=== PATIENT | male | born 1945 | race Caucasian/White ===

== ENCOUNTER 2018-11-06 15:00 | Observation (INO) ==
--- NOTE | 2018-11-06 15:15 | Emergency Department Note ---
Disposition Clinical Impression: Acute exacerbation of chronic obstructive airways disease, Hypertensive emergency Disposition: Home, Self-Care Condition: Good Referrals: Fahad Ng MD [Primary Care Provider] - Forms: ED Satisfaction Letter Time of Disposition: 18:33 (Nikita Cruz) SOB HPI - General Chief Complaint: ED Shortness of Breath/Dyspnea Stated Complaint: Shortness of breath, chest heaviness Time Seen by Provider: 11/06/18 15:00 Source: patient, family Mode of arrival: ambulatory Limitations: no limitations Nursing Notes Reviewed: Yes Vital Signs Reviewed: Yes - History of Present Illness 73-year-old male who is been having increasing shortness of breath for the past couple of days he's had shortness of breath ever since he shoveled snow the other day he denies any calf pain or tenderness noted denies any rashes or lesions states that he is having blurred vision or double vision no diarrhea no melena no hematochezia denies numbness tingling weakness recently gain or weight loss I's any radiation to neck or jaw patient states he has chest heaviness but not chest pain denies nausea vomiting or diaphoresis patient denies anything makes better anything makes it worse all systems have been reviewed and are otherwise negative patient does admit that he is noncompliant with his medications he is not tried his inhalers and he is only tried his pressure pill and he infrequently takes his cholesterol medicatio Pt Subjective Complaint: shortness of breath, chest pain Onset (ago): day(s) Context: other (After shoveling snow) Severity: moderate Consistency/Duration: constant Improves with: nothing Worsens with: nothing Known history of: COPD (emphysema) Associated symptoms: Reports: wheezing. Denies: chest pain, pain with inspiration, fever, cough, sputum production, orthopnea, lower extremity pain, polyuria, polydipsia, parasthesias, palpitations, hemoptysis, diaphoresis, nausea/vomiting, syncope, abdominal pain, rash, sense of impending doom Treatment prior to arrival: other (Has medications has opted not to use them) Cough present: No Sputum production: No - Related Data Home Medications Medication Instructions Recorded Confirmed Atenolol [Tenormin] 50 mg PO DAILY 11/06/18 11/06/18 Pravastatin Sodium [Pravachol] 20 mg PO DAILY 11/06/18 11/06/18 Allergies Allergy/AdvReac Type Severity Reaction Status Date / Time No Known Allergies Allergy Verified 11/06/18 15:00 All systems ED: reviewed and negative except as stated. Review of Systems: As Per HPI Constitutional: Denies: fever, chills, weakness Eyes: Denies: eye pain, eye discharge ENT ED: Reports: congestion. Denies: ear pain, throat pain Cardiovascular: Reports: chest pain, dyspnea on exertion. Denies: palpitations, syncope Respiratory: Reports: cough, dyspnea, wheezes Gastrointestinal: Denies: abdominal pain, nausea, vomiting Genitourinary: Denies: urgency, dysuria Musculoskeletal: Denies: back pain Integumentary: Denies: rash, abrasion Neurological: Denies: headache Psychiatric: Denies: anxiety Endocrine: Denies: fatigue Hematological/Lymphatic: Denies: easy bleeding Allergic/Immunologic: Denies: facial swelling Past Medical History - Past Medical History Attestation: Yes The following information was validated with the patient. Source: patient, old records reviewed, nursing notes reviewed Medical history: Reports: asthma, hyperlipidemia, hypertension Psychiatric history: Reports: no psych history - Social History Smoking Status: Former smoker Smokeless Tobacco Status: No Alcohol use: Reports: none Drug use: Reports: none Physical Exam - General Limitations: no limitations General appearance: alert, in no apparent distress, anxious - Head Head exam: atraumatic, normocephalic, normal inspection - Eye Eye exam: Present: normal appearance, PERRL, EOMI - ENT ENT exam: normal exam, normal oropharynx, mucous membranes moist, TM's normal bilaterally, normal external ear exam - Neck Neck exam: Present: normal inspection, full ROM, trachea midline - Chest Chest inspection: Present: normal inspection, symmetric chest wall rise - Respiratory Respiratory exam: Present: normal lung sounds bilaterally, prolonged expiratory phase - Cardiovascular Cardiovascular exam: Present: regular rate, normal rhythm, normal heart sounds - Abdominal Exam Abdominal exam: Present: soft, Non-Tender, normal bowel sounds. Absent: mass, pulsatile mass - Extremities Exam Extremities exam: Present: normal inspection, full ROM, normal capillary refill. Absent: tenderness, pedal edema, joint swelling, calf tenderness - Expanded Lower Extremity Exam Neurovascular/Tendon exam: Present: normal capillary refill, normal fine/light touch Gait: observed and normal - Back Exam Back exam: Present: normal inspection, full ROM. Absent: muscle spasm - Neurological Exam Neurological exam: Present: alert, oriented X3, CN II-XII intact, normal gait - Psychiatric Psychiatric exam: Present: normal affect, normal mood - Skin Skin exam: Present: warm, dry, intact, normal color Course Course Narrative: Seen and examined laboratory data chest x-ray and EKG were ordered patient resting comfortably at this time does not appear to be a distress vital signs pulse 74 O2 sats 98% respiratory rate is 17 blood pressure slightly elevated 204/104 will be receiving clonidine 0.1 mg 2 to try to decrease his pressure - Reevaluation(s) Reevaluation #1: Patient is continued rest comfortably he was given labetalol 1 dose labetalol with 0.2 mg clonidine his heart rate is now 59 O2 sats 96% blood pressures 160/80 is resting comfortably I did speak with Dr. Shelton was admitted for obs ervation and we will CT his abdomen as upon admission patient be transferred to [facility] Vital Signs O2 Sat by Pulse Oximetry 89 11/06/18 15:00 Temperature 98.7 F 11/06/18 15:02 Pulse Rate 79 11/06/18 16:28 Respiratory Rate 18 11/06/18 16:28 Blood Pressure 194/96 11/06/18 16:28 O2 Sat by Pulse Oximetry 97 11/06/18 16:28 Oxygen Delivery Oxygen Delivery Nasal Cannula Shortness of Breath/Dyspnea - [facility] Narrative Medical decision making narrative: Hypertensive emergency urgency - Differential Diagnosis Likely: acute exacerbation of chronic obstructive airways disease - Medical Records Medical records reviewed: Yes I reviewed the patient's medical records. - Lab Data Lab results reviewed: Yes I reviewed the patient's lab results. Result diagrams: 11/06/18 15:59 11/06/18 15:59 Lab Results 11/06/18 11/06/18 11/06/18 Range/Units 15:45 15:59 15:59 WBC 6.5 (4.3-11.1) K/mcL RBC 4.79 (4.19-5.50) M/mcL Hgb 14.3 (12.9-16.9) g/dL Hct 43.3 (37.5-50.1) % MCV 90.4 (83.0-100.0) fL MCH 29.9 (28.0-33.3) pg MCHC 33.0 (31.6-35.5) g/dL RDW 12.4 (11.5-14.5) % Plt Count 122 L (140-400) K/mcL MPV 10.4 (9.4-12.4) fL Immature Gran % 0.2 (0-4) % Seg Neutrophils % 73.1 % Lymphocytes % 15.3 % Monocytes % 7.7 % Eosinophils % 3.1 % Basophils % 0.6 % Neutrophils # 4.8 (1.6-8.9) K/mcL Lymphocytes # 1.0 (0.6-4.6) K/mcL Monocytes # 0.5 (0.0-1.3) K/mcL Eosinophils # 0.2 (0.0-0.6) K/mcL Basophils # 0.0 (0.0-0.2) K/mcL PT 13.0 H (9.4-12.1) Seconds INR 1.2 APTT 30.8 (26.0-36.0) Seconds D-Dimer 5724 H (0-500) ng/mLFEU Sodium (136-145) mEq/L Potassium (3.5-5.1) mEq/L Chloride (98-107) mEq/L Carbon Dioxide (23-29) mEq/L BUN (8-23) mg/dL Creatinine (0.70-1.30) mg/dL Est GFR ( Amer) (> 60) Est GFR (Non-Af Amer) (> 60) BUN/Creatinine Ratio (6-26) Glucose (70-105) mg/dL Calculated Osmolality (280-300) Calcium (8.6-10.3) mg/dL Total Bilirubin (0.3-1.0) mg/dL AST (13-39) Units/L ALT (7-52) Units/L Alkaline Phosphatase (34-104) Units/L Troponin I (< 0.04) ng/mL B-Natriuretic Peptide (Less than 100) pg/mL Serum Total Protein (6.4-8.9) g/dL Albumin (3.5-5.7) g/dL Globulin (2.4-3.5) g/dL Albumin/Globulin Ratio (1.1-2.2) TSH (0.340-5.600) mcIU/mL Urine Color Yellow (Yellow) Urine Clarity Clear (Clear) Urine pH 7.5 (5.0-8.0) pH Units Ur Specific [place] 1.020 (1.010-1.025) Urine Protein 100 H (Neg-Trace) mg/dL Urine Glucose (UA) Normal (Normal) mg/dL Urine Ketones Negative (Negative) mg/dL Urine Blood Trace-lysed H (Negative) Urine Nitrite Negative (Negative) Urine Bilirubin Negative (Negative) Urine Urobilinogen 2.0 H (Normal) mg/dL Ur Leukocyte Esterase Negative (Negative) Urine Microscopic RBC 0-3 (0-3) per hpf Urine Microscopic WBC 0-3 (0-3) per hpf Ur Squamous Epith Cells Few (None-Few) per lpf Amorphous Sediment Moderate H (Few) Urine Bacteria Moderate H (None-Few) per hpf Urine Yeast Few H (None Seen) per hpf Ur Culture Indicated? NO (NO) 11/06/18 11/06/18 Range/Units 15:59 15:59 WBC (4.3-11.1) K/mcL RBC (4.19-5.50) M/mcL Hgb (12.9-16.9) g/dL Hct (37.5-50.1) % MCV (83.0-100.0) fL MCH (28.0-33.3) pg MCHC (31.6-35.5) g/dL RDW (11.5-14.5) % Plt Count (140-400) K/mcL MPV (9.4-12.4) fL Immature Gran % (0-4) % Seg Neutrophils % % Lymphocytes % % Monocytes % % Eosinophils % % Basophils % % Neutrophils # (1.6-8.9) K/mcL Lymphocytes # (0.6-4.6) K/mcL Monocytes # (0.0-1.3) K/mcL Eosinophils # (0.0-0.6) K/mcL Basophils # (0.0-0.2) K/mcL PT (9.4-12.1) Seconds INR APTT (26.0-36.0) Seconds D-Dimer (0-500) ng/mLFEU Sodium 139 (136-145) mEq/L Potassium 4.2 (3.5-5.1) mEq/L Chloride 102 (98-107) mEq/L Carbon Dioxide 31 H (23-29) mEq/L BUN 23 (8-23) mg/dL Creatinine 1.07 (0.70-1.30) mg/dL Est GFR ( Amer) > 60 (> 60) Est GFR (Non-Af Amer) > 60 (> 60) BUN/Creatinine Ratio 21 (6-26) Glucose 114 H (70-105) mg/dL Calculated Osmolality 293 (280-300) Calcium 9.5 (8.6-10.3) mg/dL Total Bilirubin 0.8 (0.3-1.0) mg/dL AST 20 (13-39) Units/L ALT 14 (7-52) Units/L Alkaline Phosphatase 65 (34-104) Units/L Troponin I < 0.03 (< 0.04) ng/mL B-Natriuretic Peptide 654 H (Less than 100) pg/mL Serum Total Protein 6.7 (6.4-8.9) g/dL Albumin 4.1 (3.5-5.7) g/dL Globulin 2.6 (2.4-3.5) g/dL Albumin/Globulin Ratio 1.6 (1.1-2.2) TSH 2.023 (0.340-5.600) mcIU/mL Urine Color (Yellow) Urine Clarity (Clear) Urine pH (5.0-8.0) pH Units Ur Specific [place] (1.010-1.025) Urine Protein (Neg-Trace) mg/dL Urine Glucose (UA) (Normal) mg/dL Urine Ketones (Negative) mg/dL Urine Blood (Negative) Urine Nitrite (Negative) Urine Bilirubin (Negative) Urine Urobilinogen (Normal) mg/dL Ur Leukocyte Esterase (Negative) Urine Microscopic RBC (0-3) per hpf Urine Microscopic WBC (0-3) per hpf Ur Squamous Epith Cells (None-Few) per lpf Amorphous Sediment (Few) Urine Bacteria (None-Few) per hpf Urine Yeast (None Seen) per hpf Ur Culture Indicated? (NO) - Radiology Data Radiology results reviewed: Yes I reviewed the patient's radiology results. - EKG Data EKG attestation: Yes I reviewed and interpreted this EKG. EKG results narrative: EKG sinus rhythm prolonged QT with the HR 78 OR 173 QRS 99 QT 418 access -21 Critical Care Time Critical Care Time: Yes Total Critical Care Time: 15 Attestation: I probably clinically significant life-threatening deterioration is patient condition as result of repeated episodes here in the emergency room secondary to hypertensive emergency pressure is a stabilized
[2018-11-06] MEDS ORDERED: cloNIDine HCl 0.1 MG TABLET PO STA (15:40)
[2018-11-06] MEDS ORDERED: Ipratropium/Albuterol Neb 3 ML IH ONE (15:54)
[2018-11-06 16:08] LABS: Basophils % 0.6 %; Eosinophils # 0.2 K/mcL (0.0-0.6); Eosinophils % 3.1 %; Hematocrit 43.3 % (37.5-50.1); Hemoglobin 14.3 g/dL (12.9-16.9); Immature Granulocytes % 0.2 % (0-4); Lymphocytes % 15.3 %; Mean Corpuscular Hemoglobin 29.9 pg (28.0-33.3); Mean Corpuscular Volume 90.4 fL (83.0-100.0); Mean Platelet Volume 10.4 fL (9.4-12.4); Monocytes # 0.5 K/mcL (0.0-1.3); Monocytes % 7.7 %; Neutrophils # 4.8 K/mcL (1.6-8.9); Platelet Count 122 K/mcL (140-400); Red Blood Count 4.79 M/mcL (4.19-5.50); Red Cell Distribution Width 12.4 % (11.5-14.5); Segmented Neutrophils % 73.1 %
[2018-11-06 16:11] LABS: Bilirubin,Urine Negative (Negative); Blood,Urine Trace-lysed (Negative); Clarity,Urine Clear (Clear); Color,Urine Yellow (Yellow); Glucose,Urine (UA) Normal (Normal); Ketones,Urine Negative (Negative); Leukocyte Esterase,Urine Negative (Negative); Nitrite,Urine Negative (Negative); PH,Urine 7.5 pH Units (5.0-8.0); Protein,Urine 100 mg/dL (Neg-Trace)
[2018-11-06 16:19] LABS: INR 1.2
[2018-11-06 16:20] LABS: Amorphous Sediment,Urine Moderate (Few); Bacteria,Urine Moderate per hpf (None-Few); RBC,Urine 0-3 per hpf (0-3); Squamous Epithelial Cell,Urine Few per lpf (None-Few); WBC,Urine 0-3 per hpf (0-3); Yeast,Urine Few per hpf (None Seen)
[2018-11-06 16:21] LABS: Activated Partial Thrombo Time 30.8 Seconds (26.0-36.0)
[2018-11-06] MEDS ORDERED: ISOVUE-370 100 ML INFUS..BTL IVP ONE (16:22)
[2018-11-06 16:30] LABS: Alanine Aminotransferase 14 Units/L (7-52); Albumin 4.1 g/dL (3.5-5.7); Albumin/Globulin Ratio 1.6 (1.1-2.2); Alkaline Phosphatase 65 Units/L (34-104); Aspartate Amino Transferase 20 Units/L (13-39); BUN/Creatinine Ratio 21 (6-26); Bilirubin,Total 0.8 mg/dL (0.3-1.0); Blood Urea Nitrogen 23 mg/dL (8-23); Calcium 9.5 mg/dL (8.6-10.3); Carbon Dioxide 31 mEq/L (23-29); Chloride 102 mEq/L (98-107); Globulin 2.6 g/dL (2.4-3.5); Glucose 114 mg/dL (70-105); Osmolality,Calculated 293 (280-300); Potassium 4.2 mEq/L (3.5-5.1); Sodium 139 mEq/L (136-145); Total Protein 6.7 g/dL (6.4-8.9); Troponin I < 0.03 ng/mL (< 0.04); eGFR For Non-African Americans > 60 (> 60)
[2018-11-06 16:44] LABS: Thyroid Stimulating Hormone 2.023 mcIU/mL (0.340-5.600)
[2018-11-06] MEDS ORDERED: *HR* Labetalol 20 MG/4 ML SYRINGE IVP STA (17:05)
[2018-11-06] MEDS ORDERED: Bumetanide 1 MG/4 ML VIAL IVP ONE (17:26)
[2018-11-06] MEDS ORDERED: methylPREDNISolone 125 MG/2 ML VIAL IVP ONE ×2 (18:14→18:27)
[2018-11-06] MEDS ORDERED: Naloxone 0.4 MG/ML INJ IVP PRN (18:27)
[2018-11-06] MEDS: Ipratropium Neb 0.5 MG NEBULIZER IH SCH (20:19)
[2018-11-07] MEDS: MethylPREDNISolone 40 MG/ML VIAL IVP SCH ×2 (00:36→09:47)
[2018-11-07] MEDS: Ipratropium Neb 0.5 MG NEBULIZER IH SCH ×4 (04:00→11:15)
[2018-11-07 06:53] LABS: Basophils % 0.3 %; Hematocrit 42.7 % (37.5-50.1); Hemoglobin 14.2 g/dL (12.9-16.9); Immature Granulocytes % 0.3 % (0-4); Lymphocytes # 0.5 K/mcL (0.6-4.6); Lymphocytes % 12.1 %; Mean Corpuscular HGB Conc 33.3 g/dL (31.6-35.5); Mean Corpuscular Volume 90.1 fL (83.0-100.0); Mean Platelet Volume 10.7 fL (9.4-12.4); Monocytes # 0.1 K/mcL (0.0-1.3); Monocytes % 1.3 %; Neutrophils # 3.3 K/mcL (1.6-8.9); Platelet Count 120 K/mcL (140-400); Red Blood Count 4.74 M/mcL (4.19-5.50); Red Cell Distribution Width 12.1 % (11.5-14.5)
[2018-11-07 07:16] LABS: BUN/Creatinine Ratio 23 (6-26); Blood Urea Nitrogen 24 mg/dL (8-23); Calcium 9.6 mg/dL (8.6-10.3); Carbon Dioxide 30 mEq/L (23-29); Chloride 99 mEq/L (98-107); Glucose 180 mg/dL (70-105); Osmolality,Calculated 293 (280-300); Potassium 3.9 mEq/L (3.5-5.1); Sodium 137 mEq/L (136-145); eGFR For Non-African Americans > 60 (> 60)
[2018-11-07 11:58] VITALS: BP 179/92
--- NOTE | 2018-11-07 12:16 | Internal Med History&Physical ---
Date of Encounter: 11/07/18 Time of Encounter: 11:45 Assessment and Plan (1) Acute exacerbation of chronic obstructive airways disease Current visit: Yes Status: Acute He was given Solu-Medrol in emergency room. He states his breathing has significantly improved and he feels stable for discharge home. (2) Elevated brain natriuretic peptide (BNP) level Current visit: Yes Status: Acute He denies past knowledge of heart failure. I explained to him heart failure could be either systolic or diastolic etiology. His PCP can order echocardiogram for further evaluation. (3) Hyperglycemia Current visit: Yes Status: Acute Fasting blood sugar 180 mg/dL this morning. He was given Solu-Medrol through emergency room. (4) Hypertensive emergency Current visit: Yes Status: Acute He was given clonidine and labetalol in ER. Blood pressures returned to satisfactory level. Internal Medicine - H&P: HPI Chief complaint: Dyspnea Admitted From: Emergency Dept Plans for Post Hospital Care: Home History of present illness: Mr. Monterroso is a 73 year old male came to emergency room stating he had dyspnea onset approximately one week ago but worsening over the previous 48 hours. He denies pain fevers chills vomiting or diarrhea. He states he had a cough with minimal productivity. He was evaluated in emergency room and was felt to have exacerbation of COPD and possible superimposed heart failure. The D-dimer was significantly elevated but chest CTA showed no pulmonary embolism. He was admitted to [facility] floor for ongoing care needs. He states his breathing is significantly improved and near baseline now and he feels stable for discharge home. Respiratory history is significant for having smoked from age [age] up to 2 packs per day. He has a diagnosis of emphysema but does not recall PFTs being done. He does not use home oxygen. He has not been tested for sleep apnea. Cardiac history is positive for hypertension and known ASPVD. He has had abdominal aortic aneurysm repair approximately 2004. He denies previous knowledge of heart failure. He denies DVT or pulmonary embolus. Past Med Surg Social Fam HX - Past Medical History Medical history: asthma, hyperlipidemia, hypertension Psychiatric history: no psych history - Past Surgical History Additional surgical history: anuerysm repair - Social History Smoking Status: Former smoker Smokeless Tobacco Status: No Alcohol use: none Drug use: none - Family History Mother Living Status: Internal Medicine - H&P: Meds Atenolol [Tenormin] 50 mg PO DAILY 11/06/18 [History] Pravastatin Sodium [Pravachol] 20 mg PO DAILY 11/06/18 [History] Allergy/AdvReac Type Severity Reaction Status Date / Time No Known Allergies Allergy Verified 11/06/18 15:00 All Systems PM: A 10-system review of systems was performed and is negative for pertinent findings except as documented above in the HPI. Review of systems: Gen.: He states his weight is stable for several years Cardiovascular: As per history of present illness Respiratory: As per history of present illness GI: He denies disorders of his liver gallbladder or exocrine pancreas : He has BPH symptoms. He denies other kidney bladder prostate disorders. Neurologic: He denies large distribution strokes or seizures. Endocrine: He denies diabetes or thyroid disease. He has hyperlipidemia. Hematology/oncology: He denies blood disorders cancers or anemia Psychiatric: He has feelings of anxiety and depression at times but does not take medication. He denies other mental health diagnosis. [place] skeletal: He has had right femur injury, left tibia dislocation, pelvic fracture, and right shoulder dislocation. He denies gout or other bone joint or muscle disorders. - Constitutional Vitals: Temp Pulse Resp BP Pulse Ox 98.4 F 66 15 179/92 92 11/07/18 11:57 11/07/18 11:57 11/07/18 11:57 11/07/18 11:57 11/07/18 11:57 Exam: Gen.: He is a well-developed well-nourished male resting comfortably in bed who appears in no severe distress at present time HEENT: Head is atraumatic and normal cephalic. Eyes: EOMI. There is no scleral icterus. Mouth: Mucosa is moist. Neck: Supple and nontender. There is no thyromegaly or adenopathy noted. Heart: Regular without murmurs gallops or ectopics Lungs: No wheezes or crackles are heard. Abdomen: Soft and nontender. No masses or guarding are noted. Extremities: There is no cyanosis edema or clubbing noted. Dorsalis pedis and posterior tibial pulses are trace to 1+ palpable bilaterally. Neurologic: Mental status: He is talkative and a good historian. Cranial nerves: Smile is symmetric. Forehead wrinkles bilaterally. Tongue protrudes midline. EOMI. Motor: There is no pronator drift. Cerebellar: Finger to nose is intact bilaterally. Skin: Warm and dry Internal Med - H&P Results - Labs CBC & Chem 7: 11/07/18 05:00 11/07/18 05:00 Labs: Short CBC 11/06/18 11/07/18 Range/Units 15:59 05:00 WBC 6.5 3.8 L (4.3-11.1) K/mcL Hgb 14.3 14.2 (12.9-16.9) g/dL Hct 43.3 42.7 (37.5-50.1) % Plt Count 122 L 120 L (140-400) K/mcL Neutrophils # 4.8 3.3 (1.6-8.9) K/mcL BMP 11/06/18 11/07/18 15:59 05:00 Sodium 139 137 Potassium 4.2 3.9 Chloride 102 99 Carbon Dioxide 31 H 30 H BUN 23 24 H Creatinine 1.07 1.06 Glucose 114 H 180 H Calcium 9.5 9.6 Cardiac Enzymes 11/06/18 Range/Units 15:59 Troponin I < 0.03 (< 0.04) ng/mL Liver Function 11/06/18 Range/Units 15:59 Total Bilirubin 0.8 (0.3-1.0) mg/dL AST 20 (13-39) Units/L ALT 14 (7-52) Units/L Alkaline Phosphatase 65 (34-104) Units/L Albumin 4.1 (3.5-5.7) g/dL Urine 11/06/18 Range/Units 15:45 Urine Color Yellow (Yellow) Urine Clarity Clear (Clear) Urine pH 7.5 (5.0-8.0) pH Units Ur Specific [place] 1.020 (1.010-1.025) Urine Protein 100 H (Neg-Trace) mg/dL Urine Glucose (UA) Normal (Normal) mg/dL - Impressions ITS Impressions Chest X-Ray 11/06/18 15:18 IMPRESSION: COPD. No acute cardiopulmonary process. D/ / 11/06/2018 15:48:27 Martin Linton MD / Maria T Howard Interpreting Provider: Martin Linton MD Chest CTA 11/06/18 16:22 IMPRESSION: 1. No acute pulmonary embolism. 2. Increased interstitial markings may represent interstitial edema. 3. Emphysema. D/ / Cecil Rosado MD / Cecil Rosado MD Interpreting Provider: Cecil Rosado MD Abdomen/Pelvis CT 11/06/18 18:22 IMPRESSION: Abdominal aortic aneurysm measuring 4.1 cm. Please see recommendations below. No evidence of retroperitoneal hemorrhage. Enlarged prostate gland measuring 5.3 cm. Correlate with PSA levels. Scattered urinary bladder diverticula. Excreted contrast within the bilateral renal collecting system and urinary bladder with mild distention of the renal collecting system. Colonic diverticulosis. No significant diverticulitis. Mild thickening of the underdistended ascending colon is nonspecific and may be secondary to underdistention. Follow-up screening colonoscopy is recommended. D/ / 11/06/2018 20:07:39 Anmol Linton MD / Maria T Howard Interpreting Provider: Anmol Linton MD
--- NOTE | 2018-11-07 12:25 | Discharge Summary ---
Date of Encounter: 11/07/18 Time of Encounter: 11:45 - Discharge Diagnosis (1) Acute exacerbation of chronic obstructive airways disease Priority: Primary Status: Acute (2) Elevated brain natriuretic peptide (BNP) level Priority: Secondary Status: Acute (3) Hyperglycemia Priority: Secondary Status: Acute (4) Hypertensive emergency Priority: Secondary Status: Acute Hospital course: Mr. Monterroso is a 73 year old male who came to emergency room stating he had dyspnea onset approximately one week ago but worsening over the previous 48 hours. He denies pain fevers chills vomiting or diarrhea. He states he had a cough with minimal productivity. He was evaluated in emergency room and was felt to have exacerbation of COPD and possible superimposed heart failure. The D-dimer was significantly elevated but chest CTA showed no pulmonary embolism. He was admitted to [facility] for ongoing care needs. Initial orders were written by the emergency room physician. I saw him on November 07 and performed the history and physical and discharge. By the time I saw him his breathing had significant improved and he wished to be discharged home. He will be started on Toprol-XL instead of atenolol. Bumex and nadine nopril will be added for heart failure and blood pressure. An echocardiogram can be ordered by his PCP to further evaluate heart failure. Room air oximetry will be done on 6 minute walk prior to discharge. He will follow with his PCP Dr. Fahad Ng within 1 week. - Time Spent with Patient Total time spent providing and/or coordinating discharge services: - Discharge Medications Prescriptions: Bumetanide [Bumex] 0.5 mg PO DAILY #15 tablet Lisinopril [Zestril] 20 mg PO DAILY #30 tablet Metoprolol XL (24 HR) Succ [Toprol XL] 50 mg PO DAILY #30 tab.er.24h Home Medications: Pravastatin Sodium [Pravachol] 20 mg PO DAILY 11/06/18 [History] Bumetanide [Bumex] 0.5 mg PO DAILY #15 tablet 11/07/18 [Rx] Lisinopril [Zestril] 20 mg PO DAILY #30 tablet 11/07/18 [Rx] Metoprolol XL (24 HR) Succ [Toprol XL] 50 mg PO DAILY #30 tab.er.24h 11/07/18 [Rx] Allergies/Adverse Reactions: Allergy/AdvReac Type Severity Reaction Status Date / Time No Known Allergies Allergy Verified 11/06/18 15:00 Date of admission: 11/06/18 18:21 Primary care physician: Fahad Ng MD Consults: 11/06/18 18:27 Consult to Nurse Navigator [CONS] Routine Comment: - Constitutional Vitals: Temp Pulse Resp BP Pulse Ox 98.4 F 66 15 179/92 92 11/07/18 11:57 11/07/18 11:57 11/07/18 11:57 11/07/18 11:57 11/07/18 11:57 - Patient Status Disposition: Home, Self-Care Condition: Good - Discharge Instructions Follow Up With: Fahad Ng MD [Primary Care Provider] - 1 week - Diet and Activity Activity: resume usual activities as tolerated Diet: advance to your usual diet
--- NOTE | 2018-11-08 17:15 | Electrocardiograph Report ---
[address] [address] Test Date: 2018-11-06 Pat Name: Jama Monterroso Department: EDP-11 Room: [facility] Gender: M Bobbin Hauler: : 1945 Requested By: Sherley Berman Order Number: [id number] Reading MD: Farrah Mcdaniel Measurements Intervals [place] Rate: 78 P: 32 CA: 173 QRS: -21 QRSD: 99 T: 42 QT: 418 QTc: 477 Interpretive Statements Sinus rhythm Nonspecific ST-T changes Borderline prolonged QT interval Electronically Signed On 11-08-2018 17:14:06 EST by Farrah Mcdaniel
== END 2018-11-07 13:02 | disposition home or self-care (01) ==
LOC: INPPIK 15:00 → EMEROOPIK 15:00 → INPPIK 18:37
PROVIDERS: ADMIT Internal Medicine; ATTEND Internal Medicine

== ENCOUNTER 2018-11-08 18:07 | Observation (INO) ==
--- NOTE | 2018-11-08 18:21 | Emergency Department Note ---
Disposition Clinical Impression: New onset a-fib, Uncontrolled hypertension Disposition: Admitted As Inpatient Condition: Good Referrals: Fahad Ng MD [Primary Care Provider] - Forms: ED Satisfaction Letter, Work/School Release General Adult HPI - General Chief complaint: ED General Medical Stated complaint: high BP Time Seen by Provider: 11/08/18 18:20 Source: patient, family Mode of arrival: private vehicle Limitations: no limitations Nursing Notes Reviewed: Yes Vital Signs Reviewed: Yes - History of Present Illness HPI Narrative: Patient presents to the ED with concern about high blood pressure readings at home. Patient was just discharged yesterday around afternoon after a brief overnight admission for hypertensive urgency in which his blood pressure medications were changed significantly. Today he has been checking his blood pressure throughout the day and has had readings of anywhere from 168-197 systolic and 94-117 diastolic. Heart rate is been in the 60s to 80s. He denies any associated lightheadedness or dizziness. No chest pain, shortness of breath or palpitations. No leg swelling. No abdominal pain, nausea or vomiting. She did have 2 episodes of diarrhea today. He reports his had a chronic cough for the past month for which she has been taking an [id number] cough syrup for the past week. He reports compliance with his new blood pressure medications which included starting Bumex 0.5 mg, lisinopril 20 mg of metoprolol XL 50 mg. He took his lisinopril and Bumex this morning and metoprolol this evening. Prior to his admission he had been on only atenolol which was changed to the metoprolol XL. When he was admitted on the he had some chest pressure and shortness of breath at that time. He states his symptoms resolved and have not returned since he was discharged yesterday. On arrival his initial blood pressure is 203/115 but improved to 178/103 on repeat. Records shows that patient had a thorough workup including EKG, laboratory studies and imaging including both CTA of the chest and abdominal CT presumably due to an elevated d-dimer result. This showed a stable abdominal aneurysm but no other acute abnormalities. Pain Scale: 0 - Related Data Home Medications Medication Instructions Recorded Confirmed Pravastatin Sodium [Pravachol] 20 mg PO DAILY 11/06/18 11/08/18 Previous Rx's Medication Instructions Recorded Bumetanide [Bumex] 0.5 mg PO DAILY #15 tablet 11/07/18 Lisinopril [Zestril] 20 mg PO DAILY #30 tablet 11/07/18 Metoprolol XL (24 HR) Succ [Toprol 50 mg PO DAILY #30 tab.er.24h 11/07/18 XL] Allergies Allergy/AdvReac Type Severity Reaction Status Date / Time No Known Allergies Allergy Verified 11/08/18 18:09 Constitutional: Denies: fever, chills, weakness, weight change Eyes: Denies: eye pain, eye discharge, vision change ENT ED: Denies: ear pain, throat pain, dental pain, hearing loss, epistaxis, congestion, dysphagia Cardiovascular: Denies: chest pain, palpitations, dyspnea on exertion, edema, syncope Respiratory: Denies: cough, dyspnea, wheezes, hemoptysis, stridor Gastrointestinal: Denies: abdominal pain, nausea, vomiting, diarrhea, constipation, hematemesis, melena, hematochezia Genitourinary: Denies: urgency, dysuria, frequency, hematuria Musculoskeletal: Denies: back pain, neck pain, arthralgia, myalgia Integumentary: Denies: rash, abrasion, lesions Neurological: Denies: headache, weakness, numbness, paresthesias, confusion, abnormal gait, vertigo Psychiatric: Denies: anxiety, depression, suicidal thoughts, homicidal thoughts, auditory hallucinations, visual hallucinations Endocrine: Denies: fatigue Hematological/Lymphatic: Denies: easy bleeding, easy bruising Allergic/Immunologic: Denies: facial swelling, urticaria Past Medical History - Past Medical History Medical history: Reports: asthma, hyperlipidemia, hypertension Psychiatric history: Reports: no psych history - Social History Smoking Status: Former smoker Smokeless Tobacco Status: No Alcohol use: Reports: none Drug use: Reports: none Physical Exam - General Limitations: no limitations General appearance: alert, in no apparent distress - Head Head exam: atraumatic, normocephalic, normal inspection - Eye Eye exam: Present: normal appearance, PERRL, EOMI - ENT ENT exam: normal exam, normal oropharynx, mucous membranes moist - Neck Neck exam: Present: normal inspection, full ROM, trachea midline - Chest Chest inspection: Present: normal inspection, symmetric chest wall rise - Respiratory Respiratory exam: Present: normal lung sounds bilaterally, wheezes (faint, scattered) - Cardiovascular Cardiovascular exam: Present: regular rate, normal rhythm, normal heart sounds - Abdominal Exam Abdominal exam: Present: soft, Non-Tender. Absent: tenderness, distention, guarding, rebound, rigidity - Extremities Exam Extremities exam: Present: normal inspection, full ROM. Absent: tenderness, pedal edema - Neurological Exam Neurological exam: Present: alert, oriented X3 - Psychiatric Psychiatric exam: Present: normal affect, normal mood - Skin Skin exam: Present: warm, dry, intact, normal color Course Course Narrative: History presents to the ED with concern over elevated blood pressure readings at home that is asymptomatic. On arrival blood pressure is significantly elevated heart rate is normal. EKG showed A. fib. Review of records shows that he was in a sinus rhythm on his visit 2 days ago. Verified with patient family that he has never been diagnosed with A. fib in the past. He denies any sensation of palpitations. His workup 2 days ago did include a TSH which was normal. He does have a history of emphysema however so we will repeat the chest x-ray given his report of persistent cough along with checking routine lab work. Will continue to monitor blood pressure to determine if immediate intervention is needed. There are no signs or symptoms of acute heart failure at this time and I suspect his new onset A. fib is rate controlled currently by his metoprolol. His recent heavy cough syrup use may also have contributed to his persistent hypertension. - Reevaluation(s) Reevaluation #1: S x-ray is normal. Heart rate has remained in the 70s to 90s except for one episode of increasing to the 120s while he was up urinating. He has remained symptom free but is still in A. fib. Blood pressure has fluctuated anywhere from the 160s to 180s systolic and 80s to 90s diastolic. Will give a dose of Cardizem and watch for any effect on A. fib. Discussed with patient the need for admission for further adjustment of medications and to address the new onset A. fib and he is in agreement. Time: 19:54 Reevaluation #2: Blood pressure improved to 141/73 after IV Cardizem and heart rate dropped into the upper 50s to low 60s but he remains in A. fib. He remains asymptomatic. Discussed the case with Dr. Shelton who is in agreement for admission. Time: 20:14 Vital Signs Temperature 97.6 F 11/08/18 18:08 Pulse Rate 86 11/08/18 18:08 Respiratory Rate 16 11/08/18 18:08 Blood Pressure 203/115 11/08/18 18:08 O2 Sat by Pulse Oximetry 95 11/08/18 18:08 Temperature 97.6 F 11/08/18 18:08 Pulse Rate 65 11/08/18 20:19 Respiratory Rate 12 11/08/18 20:19 Blood Pressure 155/63 11/08/18 20:19 O2 Sat by Pulse Oximetry 94 11/08/18 20:19 Oxygen Delivery Oxygen Delivery Room Air Medical Decision Making - Medical Records Medical records reviewed: Yes I reviewed the patient's medical records. - Lab Data Lab results reviewed: Yes I reviewed the patient's lab results. Result diagrams: 11/08/18 19:18 11/08/18 18:59 Lab Results 11/08/18 11/08/18 11/08/18 Range/Units 18:59 19:18 19:18 WBC 10.8 D (4.3-11.1) K/mcL RBC 5.35 (4.19-5.50) M/mcL Hgb 15.9 D (12.9-16.9) g/dL Hct 47.7 (37.5-50.1) % MCV 89.2 (83.0-100.0) fL MCH 29.7 (28.0-33.3) pg MCHC 33.3 (31.6-35.5) g/dL RDW 12.3 (11.5-14.5) % Plt Count 133 L (140-400) K/mcL MPV 10.5 (9.4-12.4) fL Immature Gran % 0.2 (0-4) % Seg Neutrophils % 71.3 % Lymphocytes % 20.6 % Monocytes % 6.8 % Eosinophils % 0.7 % Basophils % 0.4 % Neutrophils # 7.7 (1.6-8.9) K/mcL Lymphocytes # 2.2 (0.6-4.6) K/mcL Monocytes # 0.7 (0.0-1.3) K/mcL Eosinophils # 0.1 (0.0-0.6) K/mcL Basophils # 0.0 (0.0-0.2) K/mcL Sodium 138 (136-145) mEq/L Potassium 4.1 (3.5-5.1) mEq/L Chloride 98 (98-107) mEq/L Carbon Dioxide 32 H (23-29) mEq/L BUN 37 H (8-23) mg/dL Creatinine 1.19 (0.70-1.30) mg/dL Est GFR ( Amer) > 60 (> 60) Est GFR (Non-Af Amer) 60 (> 60) BUN/Creatinine Ratio 31 H (6-26) Glucose 100 (70-105) mg/dL Calculated Osmolality 295 (280-300) Calcium 9.8 (8.6-10.3) mg/dL Troponin I 0.03 (< 0.04) ng/mL B-Natriuretic Peptide 511 H (Less than 100) pg/mL - Radiology Data Radiology results reviewed: Yes I reviewed the patient's radiology results. ITS Impressions Chest X-Ray 11/08/18 18:44 IMPRESSION: No acute process. D/ / West Ng MD / West Ng MD Interpreting Provider: West Ng MD - EKG Data EKG #1 EKG attestation: Yes I reviewed and interpreted this EKG. Rate: normal Rhythm: A.Fib [place]/QRS: normal Voltage: c/w LVH Interpretation: other (new onset A-fib compared to NSR on 11/06)
[2018-11-08] MEDS ORDERED: *HR* Labetalol 20 MG/4 ML SYRINGE IVP STA (19:19)
[2018-11-08 19:25] LABS: Basophils % 0.4 %; Eosinophils # 0.1 K/mcL (0.0-0.6); Eosinophils % 0.7 %; Hematocrit 47.7 % (37.5-50.1); Hemoglobin 15.9 g/dL (12.9-16.9); Immature Granulocytes % 0.2 % (0-4); Lymphocytes # 2.2 K/mcL (0.6-4.6); Lymphocytes % 20.6 %; Mean Corpuscular HGB Conc 33.3 g/dL (31.6-35.5); Mean Corpuscular Hemoglobin 29.7 pg (28.0-33.3); Mean Corpuscular Volume 89.2 fL (83.0-100.0); Mean Platelet Volume 10.5 fL (9.4-12.4); Monocytes # 0.7 K/mcL (0.0-1.3); Monocytes % 6.8 %; Neutrophils # 7.7 K/mcL (1.6-8.9); Platelet Count 133 K/mcL (140-400); Red Blood Count 5.35 M/mcL (4.19-5.50); Red Cell Distribution Width 12.3 % (11.5-14.5); Segmented Neutrophils % 71.3 %
[2018-11-08 19:26] LABS: BUN/Creatinine Ratio 31 (6-26); Blood Urea Nitrogen 37 mg/dL (8-23); Calcium 9.8 mg/dL (8.6-10.3); Carbon Dioxide 32 mEq/L (23-29); Chloride 98 mEq/L (98-107); Glucose 100 mg/dL (70-105); Osmolality,Calculated 295 (280-300); Potassium 4.1 mEq/L (3.5-5.1); Sodium 138 mEq/L (136-145); eGFR For Non-African Americans 60 (> 60)
[2018-11-08 19:27] LABS: Troponin I 0.03 ng/mL (< 0.04)
[2018-11-08] MEDS ORDERED: Naloxone 0.4 MG/ML INJ IVP PRN (20:17)
[2018-11-09] MEDS: Lisinopril 20 MG TABLET PO SCH (08:48)
[2018-11-09] MEDS: Bumetanide 1 MG TABLET PO SCH (08:49)
[2018-11-09] MEDS ORDERED: Metoprolol XL (24 HR) Succ 50 MG TAB.ER.24H PO SCH (09:00)
--- NOTE | 2018-11-09 11:45 | Internal Med History&Physical ---
Date of Encounter: 11/09/18 Time of Encounter: 11:20 Assessment and Plan (1) Uncontrolled hypertension Current visit: Yes Status: Acute Blood pressure has improved to 159/82. He is asymptomatic. He has requested transfer to [facility] for further cardiac evaluation. (2) Elevated brain natriuretic peptide (BNP) level Current visit: No Status: Acute BN peptide in emergency room was improved from 654 on 11/06/2018 to 511. Continue Bumex, Toprol-XL, and lisinopril. Echocardiogram should be done to further evaluate. (3) Atrial fibrillation Current visit: Yes Status: Acute Not present on EKG of November 06. He is completely asymptomatic. He is an acceptable candidate for OAC. He has requested transfer to [facility] for cardiology evaluation. Qualifiers: Atrial fibrillation type: unspecified Qualified Code(s): I48.91 - Unspecified atrial fibrillation Internal Medicine - H&P: HPI Chief complaint: Hypertension, atrial fibrillation Admitted From: Emergency Dept Plans for Post Hospital Care: Home History of present illness: Mr. Monterroso is a 73 year old male who came to emergency room the evening of admission stating he had significantly elevated blood pressure at home stolid grading approximately 210. He was asymptomatic. A recheck pressure at home confirmed elevation so he came to emergency room. He was evaluated in ER were blood pressure was confirmed significantly elevated at 203/115. He was found to have atrial fibrillation with controlled rate. He was asymptomatic. He was admitted to [facility] floor for ongoing care needs. He denies known history of atrial fibrillation. He was hospitalized at [facility] November 07 for exacerbation of COPD. He had significant hypertension on admission. He was changed from atenolol to Toprol-XL. Lisinopril and Bumex were added for blood pressure control and elevated BN peptide. Cardiac history is positive for hypertension and known ASPVD. He had abdominal aortic aneurysm repair approximately 2004. He denies previous knowledge of heart failure and has not had an echocardiogram done since 2004 prior to aortic aneurysm repair surgery. He denies DVT or pulmonary embolus. Past Med Surg Social Fam HX - Past Medical History Medical history: asthma, hyperlipidemia, hypertension Psychiatric history: no psych history - Past Surgical History Additional surgical history: anuerysm repair - Social History Smoking Status: Former smoker Smokeless Tobacco Status: No Alcohol use: none Drug use: none - Family History Mother Living Status: Internal Medicine - H&P: Meds Pravastatin Sodium [Pravachol] 20 mg PO DAILY 11/06/18 [History] Bumetanide [Bumex] 0.5 mg PO DAILY #15 tablet 11/07/18 [Rx] Lisinopril [Zestril] 20 mg PO DAILY #30 tablet 11/07/18 [Rx] Metoprolol XL (24 HR) Succ [Toprol XL] 50 mg PO DAILY #30 tab.er.24h 11/07/18 [Rx] Allergy/AdvReac Type Severity Reaction Status Date / Time No Known Allergies Allergy Verified 11/08/18 18:09 All Systems PM: A 10-system review of systems was performed and is negative for pertinent findings except as documented above in the HPI. Review of systems: Review of systems from his [facility] hospitalization a few days ago were reviewed and revised as below. Gen.: He states his weight has been stable for several years Cardiovascular: As per history of present illness Respiratory: He smoked from age [age] up to 2 packs per day. He has a diagnosis of emphysema but does not recall PFTs being done. He does not use home oxygen. He has not been tested for sleep apnea. GI: He denies disorders of his liver gallbladder or exocrine pancreas : He has BPH symptoms. He denies other kidney bladder prostate disorders. Neurologic: He denies large distribution strokes or seizures. Endocrine: He denies diabetes or thyroid disease. He has hyperlipidemia. Hematology/oncology: He denies blood disorders cancers or anemia Psychiatric: He has feelings of anxiety and depression at times but does not ta ke medication. He denies other mental health diagnosis. [place] skeletal: He has had right femur injury, left tibia dislocation, pelvic fracture, and right shoulder dislocation. He denies gout or other bone joint or muscle disorders. - Constitutional Vitals: Temp Pulse Resp BP Pulse Ox 97.9 F 97 20 159/88 95 11/09/18 10:52 11/09/18 10:52 11/09/18 10:52 11/09/18 10:52 11/09/18 10:52 Exam: Gen.: He is a well-developed well-nourished male resting comfortably in bed who appears in no acute distress. He denies pain or dyspnea at present time HEENT: Head is atraumatic and normocephalic. Eyes: EOMI. There is no scleral icterus. Mouth: Mucosa is moist. Neck: Supple and nontender. There is no thyromegaly or adenopathy noted. Heart: Irregularly irregular without murmurs or gallops Lungs: No wheezes or crackles are heard. Abdomen: Soft and nontender. No masses or guarding are noted. Extremities: There is no cyanosis edema or clubbing noted. Dorsalis pedis posterior tibial pulses are trace to 1+ palpable bilaterally. Neurologic: Mental status: He is talkative and a good historian. Cranial ne rves: Smile is symmetric. Forehead wrinkles bilaterally. Tongue protrudes midline. EOMI. Motor: There is no pronator drift. Cerebellar: Finger to nose is intact bilaterally. Skin: Warm and dry Internal Med - H&P Results - Labs CBC & Chem 7: 11/08/18 19:18 11/08/18 18:59 Labs: Short CBC 11/08/18 Range/Units 19:18 WBC 10.8 D (4.3-11.1) K/mcL Hgb 15.9 D (12.9-16.9) g/dL Hct 47.7 (37.5-50.1) % Plt Count 133 L (140-400) K/mcL Neutrophils # 7.7 (1.6-8.9) K/mcL BMP 11/08/18 18:59 Sodium 138 Potassium 4.1 Chloride 98 Carbon Dioxide 32 H BUN 37 H Creatinine 1.19 Glucose 100 Calcium 9.8 Cardiac Enzymes 11/08/18 Range/Units 18:59 Troponin I 0.03 (< 0.04) ng/mL - Impressions ITS Impressions Chest X-Ray 11/08/18 18:44 IMPRESSION: No acute process. D/ / West Ng MD / West Ng MD Interpreting Provider: West Ng MD - VTE Reasons for not Prescribing Prophylaxis: Treatment not Indicated - Low risk for VTE
[2018-11-09] MEDS ORDERED: *HR* Digoxin 0.25 MG TABLET PO ONE (12:45)
[2018-11-09] MEDS ORDERED: Metoprolol XL (24 HR) Succ 50 MG TAB.ER.24H PO ONE (12:45)
[2018-11-09] MEDS: Apixaban 5 MG TABLET PO SCH ×2 (12:57→20:04)
[2018-11-10 06:45] LABS: Basophils % 0.5 %; Eosinophils # 0.2 K/mcL (0.0-0.6); Eosinophils % 2.7 %; Hematocrit 48.9 % (37.5-50.1); Hemoglobin 16.1 g/dL (12.9-16.9); Immature Granulocytes % 0.5 % (0-4); Lymphocytes # 2.1 K/mcL (0.6-4.6); Lymphocytes % 24.9 %; Mean Corpuscular HGB Conc 32.9 g/dL (31.6-35.5); Mean Corpuscular Hemoglobin 29.6 pg (28.0-33.3); Mean Corpuscular Volume 89.9 fL (83.0-100.0); Mean Platelet Volume 10.6 fL (9.4-12.4); Monocytes # 0.7 K/mcL (0.0-1.3); Monocytes % 8.6 %; Neutrophils # 5.3 K/mcL (1.6-8.9); Platelet Count 136 K/mcL (140-400); Red Blood Count 5.44 M/mcL (4.19-5.50); Red Cell Distribution Width 12.5 % (11.5-14.5); Segmented Neutrophils % 62.8 %
[2018-11-10 07:07] LABS: BUN/Creatinine Ratio 24 (6-26); Blood Urea Nitrogen 32 mg/dL (8-23); Calcium 9.3 mg/dL (8.6-10.3); Carbon Dioxide 29 mEq/L (23-29); Chloride 102 mEq/L (98-107); Glucose 93 mg/dL (70-105); Osmolality,Calculated 295 (280-300); Potassium 3.9 mEq/L (3.5-5.1); Sodium 139 mEq/L (136-145); eGFR For Non-African Americans 53 (> 60)
[2018-11-10] MEDS ORDERED: Metoprolol XL (24 HR) Succ 50 MG TAB.ER.24H PO SCH (09:00)
[2018-11-10] MEDS: Bumetanide 1 MG TABLET PO SCH (09:21)
[2018-11-10] MEDS: Apixaban 5 MG TABLET PO SCH (09:22)
[2018-11-10] MEDS: Lisinopril 20 MG TABLET PO SCH (09:23)
[2018-11-10] MEDS ORDERED: ALPRAZolam 0.25 MG TABLET PO ONE (09:49)
[2018-11-10 10:16] VITALS: BP 180/87
--- NOTE | 2018-11-10 10:45 | Discharge Summary ---
Orders not resulted at time of discharge: Pending orders 11/08/18 18:43 ECG 12 lead ECG [ECG] Stat Date of Encounter: 11/10/18 Time of Encounter: 10:25 - Discharge Diagnosis (1) Uncontrolled hypertension Priority: Primary Status: Acute (2) Atrial fibrillation Priority: Secondary Status: Acute Qualifiers: Atrial fibrillation type: paroxysmal Qualified Code(s): I48.0 - Paroxysmal atrial fibrillation (3) Elevated brain natriuretic peptide (BNP) level Priority: Secondary Status: Acute Hospital course: Mr. Monterroso is a 73 year old male who came to emergency room the evening of admission stating he had significantly elevated blood pressure at home with systolic approximately 210. He was asymptomatic. A recheck pressure at home confirmed elevation so he came to emergency room. He was evaluated in ER where blood pressure was confirmed significantly elevated at 203/115. He was found to have atrial fibrillation with controlled rate. He was asymptomatic. He was admitted to [facility] for ongoing care needs. Initial orders were written by the emergency room physician. I saw him on November 09 and performed a history and physical. He and his initially requested transfer to [facility] for further cardiac evaluation. I spoke with the [facility] hospitalist who felt patient was stable and did not require transfer. The patient was given additional metoprolol. His heart rate decreased to less than 60 so he will maintain original dose of Toprol-XL 50 mg daily. A single dose of Lanoxin was given. He converted to normal sinus rhythm within a few hours of ministration of Lanoxin and additional metoprolol and remained in normal sinus rhythm throughout the remainder of his hospital stay. His blood pressure remained above desirable range. Creatinine edis to 1.32 on day of discharge so lisinopril will be discontinued. He will be given diltiazem 240 mg daily instead. BN peptide decreased to 170 on day of discharge. His PCP can monitor this. An echocardiogram was done to further evaluate. The LVEF was 50-55 %. The interventricular septum and posterior wall thickness measurements were 1.20 and 0.80 cm respectively. There was mild aortic regurgitation. The E/A ratio was 1.6. Left atrial size was 2.60 cm. On November 10 he felt improved and stable for discharge home. He will follow with his PCP Dr. Fahad Ng within 1 week. - Time Spent with Patient Total time spent providing and/or coordinating discharge services: - Discharge Medications Prescriptions: Apixaban [Eliquis] 5 mg PO BID #60 tablet Diltiazem CD (24hr) [Cardizem CD] 240 mg PO DAILY #30 cap.er.24h Home Medications: Pravastatin Sodium [Pravachol] 20 mg PO DAILY 11/06/18 [History] Bumetanide [Bumex] 0.5 mg PO DAILY #15 tablet 11/07/18 [Rx] Metoprolol XL (24 HR) Succ [Toprol Xl] 50 mg PO DAILY #30 tab.er.24h 11/07/18 [Rx] Apixaban [Eliquis] 5 mg PO BID #60 tablet 11/10/18 [Rx] Diltiazem CD (24hr) [Cardizem CD] 240 mg PO DAILY #30 cap.er.24h 11/10/18 [Rx] Allergies/Adverse Reactions: Allergy/AdvReac Type Severity Reaction Status Date / Time No Known Allergies Allergy Verified 11/08/18 18:09 Date of admission: 11/08/18 20:26 Primary care physician: Fahad Ng MD Consults: 11/08/18 23:06 Consult to Regional Marketing Director [CONS] Routine Reason for SW Consult: Patient and are wanting to set up patient as DNR - Constitutional Vitals: Temp Pulse Resp BP Pulse Ox 98.0 F 51 16 180/87 97 11/10/18 07:15 11/10/18 10:15 11/10/18 07:15 11/10/18 10:15 11/10/18 07:15 - Patient Status Disposition: Home, Self-Care Condition: Good - Discharge Instructions Follow Up With: Fahad Ng MD [Primary Care Provider] - 1 week - Diet and Activity Activity: resume usual activities as tolerated Diet: advance to your usual diet - VTE Reasons for not Prescribing Prophylaxis: Treatment not Indicated - Low risk for VTE
== END 2018-11-10 11:45 | disposition home or self-care (01) ==
LOC: INPPIK 18:07 → EMEROOPIK 18:07 → INPPIK 20:48
PROVIDERS: ADMIT Internal Medicine; ATTEND Internal Medicine